=== PATIENT | male | born 1985 | race Caucasian/White ===

== ENCOUNTER 2020-02-09 12:29 | Emergency (ER) | payer SELFPAY ==
--- NOTE | 2020-02-09 12:36 | ED.SKABFB ---
HPI - Skin/Abscess/Foreign Bdy General Chief complaint: Skin/Abscess/Foreign Body Stated complaint: eczema Time Seen by Provider: 02/09/20 12:36 Source: patient and RN notes reviewed History of Present Illness HPI narrative: Patient is a 34-year-old male who presents the urgent care with complaints of eczema to the face, bilateral arms, ankle and buttocks. Patient states it started approximately 6 months ago and most recently has really started burning and itching at times . Patient states that he has been using his friend's prescription of Lexema foam as well as antibiotic lotion, Eucrisa, and oatmeal baths. Patient states that he does have an issue of eczema but it has never been widespread like it is now. Patient has not seen a job analysis manager and does not currently have a doctor. No other acute complaints. No acute distress noted. Patient aware of the plan of care. Some parts of this dictation were generated by voice recognition software and may contain typographical and/or grammatical inaccuracies. Related Data Allergies Allergy/AdvReac Type Severity Reaction Status Date / Time Penicillins Allergy Intermediate Unknown Verified 02/09/20 12:48 Review of Systems Review of Systems: Narrative: CONSTITUTIONAL: Denies fever, chills, or sweats. EYES: Denies visual changes, redness, or discharge. ENT: Denies rhinorrhea, congestion, sore throat, or otalgia. CARDIOVASCULAR: Denies chest pain, palpitations, or edema. RESPIRATORY: Denies cough or dyspnea. GASTROINTESTINAL: Denies abdominal pain, nausea, vomiting, or diarrhea. GENITOURINARY: Denies dysuria or hematuria. SKIN: Reports of burning/itchy eczema to the face, bilateral arms, ankle and buttocks MUSCULOSKELETAL: Denies back pain, joint pain, or myalgia. NEUROLOGIC: Denies headache, numbness, or weakness. All other systems reviewed are negative, except as documented in HPI. PMFSH Comments At the time of my signature, I reviewed and agree with the nursing past medical, surgical, social, and family history. There is no relevant family history pertinent to the patient complaint. Exam Narrative: Exam Narrative: GENERAL: This is a well-nourished, well-developed patient, in no apparent distress. HEAD: normocephalic, atraumatic. EYES: PERRL. Sclera clear/white. Vision is grossly intact. EARS: External ears normal NOSE: External nose normal with no obvious nasal discharge, nares without redness, no rhinorrhea. THROAT: Mucous membranes moist NECK: Neck supple SKIN: Plaque a dry erythemic eczema noted diffusely to the face, bilateral antecubital fossa's, right ankle, and left buttocks NEURO: awake, alert, and oriented to person, place and time. There were no obvious focal neurologic abnormalities. EXTREMITIES: No clubbing, cyanosis, or edema. Course Vital Signs Vital signs: Vital Signs Temperature 98.5 F 02/09/20 12:44 Pulse Rate 106 H 02/09/20 12:44 Respiratory Rate 02/09/20 12:44 Blood Pressure 159/91 H 02/09/20 12:44 Pulse Oximetry 100 02/09/20 12:44 Temperature 98.5 F 02/09/20 12:44 Pulse Rate 106 H 02/09/20 12:44 Respiratory Rate 02/09/20 12:44 Blood Pressure 159/91 H 02/09/20 12:44 Pulse Oximetry 100 02/09/20 12:44 Reviewed-patient is informed that they may have pre-hypertension or hypertension based on a blood pressure reading in the department. I recommend the patient call the primary care provider listed on their discharge instructions or a physician of their choice this week to arrange follow-up for further evaluation of possible pre-hypertension or hypertension. MDM - Skin/Abscess/Foreign Bdy MDM Narrative Medical decision making narrative: Advised the patient to use prescription steroid as directed. Make sure to eat and drink with the medication. Use prescription cream to the affected areas as directed, avoiding the armpits/directly near the eyes/groin. Use Aquaphor ointment intermittently to the affected areas and continue the oa
[2020-02-09 12:44] VITALS: BP 159/91; PULSE 106; RESP 20; TEMP 36.9; O2SAT 100
== END 2020-02-09 13:05 | disposition home or self-care (01) ==
PROVIDERS: Emergency Provider Nurse Practitioner Family
DX: L30.9 Dermatitis, unspecified (principal)
CPT/HCPCS: 99213; G0463

== ENCOUNTER 2023-09-23 21:26 | Emergency (ER) | payer SELFPAY ==
[2023-09-23 21:29] VITALS: BP 142/91; PULSE 100; RESP 16; TEMP 36.3; O2SAT 100
--- NOTE | 2023-09-23 22:17 | ED.WOUNDLAC ---
HPI - Wound/Laceration General Chief Complaint: Wound/Laceration Stated Complaint: R FOOT PUNCTURE WOUND Time Seen by Provider: 09/23/23 21:41 Source: patient Mode of arrival: ambulatory Limitations: no limitations History of Present Illness HPI narrative: This is a 38-year-old male that presents to the emergency department after puncture wound to his right heel this morning. He is not up-to-date on tetanus. Reports pain and swelling to the area. Denies fevers, erythema, or abnormal drainage. Related Data Allergies Allergy/AdvReac Type Severity Reaction Status Date / Time Penicillins Allergy Intermediate Unknown Verified 09/23/23 21:27 Review of Systems Review of Systems: CONSTITUTIONAL: Denies fever SKIN: Reports puncture wound All systems reviewed & are unremarkable except as noted in HPI and below PMFSH Past Medical History Medical History (Updated 09/23/23 @ 22:30 by Susannah Snider PA-C) ADHD Social History Social History (Updated 09/23/23 @ 22:30 by Susannah Snider PA-C) Substance use: never Exam Narrative: GENERAL: Well-appearing, well-nourished, and in no acute distress. HEAD: Normocephalic, atraumatic. EYES: EOMI. EXTREMITIES: Normal range of motion. No edema, erythema or abnormal drainage. Small puncture wound to the right heel SKIN: Warm, dry, no rash. NEURO: No focal deficits. Alert and oriented x3. PSYCH: Normal mood and affect Course Course Emergency Course: Patient agrees with plan of care Vital Signs Vital signs: Vital Signs Temperature 97.4 F L 09/23/23 21:29 Pulse Rate 100 09/23/23 21:29 Respiratory Rate 16 09/23/23 21:29 Blood Pressure 142/91 H 09/23/23 21:29 Pulse Oximetry 100 09/23/23 21:29 Oxygen Delivery Room Air 09/23/23 21:29 Temperature 97.4 F L 09/23/23 21:29 Pulse Rate 100 09/23/23 21:29 Respiratory Rate 16 09/23/23 21:29 Blood Pressure 142/91 H 09/23/23 21:29 Pulse Oximetry 100 09/23/23 21:29 Oxygen Delivery Room Air 09/23/23 21:29 MDM - Wound/Laceration MDM Narrative Medical decision making narrative: Patient presents to the ER for puncture wound to the right foot sustained just prior to arrival. Wound was irrigated. He will be started on prophylactic antibiotics. Refused x-ray of the foot. He was educated on further wound care. He was given warnings to return to the ER Differential Diagnosis Differential diagnosis: Likely other (puncture wound) Critical Care Time Critical Care Time Critical Care Time: No Discharge Plan Discharge Clinical Impression: Puncture wound Patient Disposition: Home, Self-Care Condition: Stable Instructions: Antibiotic Form, Puncture Wound (ED) Additional Instructions: Return to the emergency department if you experience fever, redness or swelling of your wound, abnormal drainage from your wound, or any other symptoms that are concerning to you. Apply antibiotic ointment daily. Do not soak the wound. Clean with mild soap and water daily. Take oral antibiotics as prescribed Follow-up with primary care doctor Prescriptions: New cephalexin 500 mg capsule 500 mg PO Q6H 5 Days Qty: 20 0RF ciprofloxacin HCl 500 mg tablet 500 mg PO Q12H 5 Days Qty: 10 0RF No Action prednisone 10 mg tablet See Rx Instructions .ROUTE .COMPLEX Qty: 30 0RF Rx Instructions: 4 tabs daily for days 1-3, 3 tabs daily for days 4-6, 2 tabs daily for days 7-9, 1 tab daily for days 10-12 triamcinolone acetonide 0.1 % ointment 1 applic topical BID Qty: 30 0RF Follow-up/Referrals: PHYSICIAN,EDITOR NEWSPAPER [Primary Care Provider] - Lon Valdivia MD [Physician] -
[2023-09-23] MEDS: CIPROFLOXACIN 500 MG TAB PO (22:34)
[2023-09-23] MEDS: CEPHALEXIN 500 MG CAPSULE PO (22:34)
[2023-09-23] MEDS: TETANUS,DIPHTHERIA,AC PERTUSSIS ADULT (0.5 ML) BOOSTRIX IM (22:34)
== END 2023-09-23 22:40 | disposition home or self-care (01) ==
PROVIDERS: Emergency Provider Physician Assistant
DX: S91.331A Puncture wound without foreign body, right foot, initial encounter (principal); Z23 Encounter for immunization; W45.0XXA Nail entering through skin, initial encounter
CPT/HCPCS: 90471; 90715; 99283; A9270

== ENCOUNTER 2024-08-08 23:23 | Emergency (ER) | payer SELFPAY ==
--- OUTSIDE RECORDS SUMMARY | 2024-08-08 23:25 | XMS_ITS | Data Portability ---
Author [facility] [address] [place] [address] Assessment No assessment recorded. Plan of Treatment Reminders Order Date Submit Date Provider Last Modified By Organization Details Last Modified Time Details Appointments None recorded. Lab None recorded. Referral ophthalmol ogist referral - Please call patient to schedule appt. Thank you. Reached out to patient no response. Return to submit. [facility]08/21/19 no response return to submit. [facility] 2018 020 emely Baig MD, [address] [place], [address], 0 09:50:05 Procedures None recorded. Surgeries None recorded. Imaging None recorded. Medication Orders tobramycin 0.3 % eye drops 2018 019 [facility] #[id number] [address] [place], [place], [id number], 9 15:14:04 Alanis Allergy 180 mg tablet 2018 019 [facility] #[id number] [address], [place], [id number], 9 15:13:52 Patient TargetsNo targets recorded. Patient InstructionsNo instructions recorded. Reason for Referral Barrel Brander Referral for [place] eye disease Please call patient to schedule appt. Thank you. Reached out to patient no response. Return to submit. [facility]08/21/19 no response return to submit. [facility] Referring Physician: Maame Whalen, Internal Medicine, Encounter Date: 01/01/2019 Problems Name Problem SNOMED Code Status Onset Date Resolution Date Notes Provider Name and Address Organization Details Recorded Time Red eye Active 01/02/20 19 JIMBO Torres [facility] 01/01/2019 14:49:58 Problem Notes None recorded. Medical Equipment None Reported. Allergies Allergen ID Allergen Name Allergen Category Reaction Reaction Severity Criticality Documentation Date Start Date Code Code System Note Provider Name and Address Organization Details Recorded Time 183549 latex environme nt,medica tion hives Not available Not available 01/01/2019 05419 91 RxNorm JIMBO Torres [facility] 9 14:50:23 851807 Product containin g penicilli n (product) medicatio n hives Not available Not available 01/01/2019 13115 8001 SNOMED JIMBO Torres [facility] 9 14:50:33 Medications Name Sig Start Date Stop Date Status Note LastModified by Organization Details LastModified Time tobramycin 0.3 % eye drops INSTILL 1 DROP INTO AFFECTED EYE(S) BY OPHTHALMIC ROUTE EVERY 4 HOURS 2018 active Not Available Not Available Not Avai lable Alanis Allergy 180 mg tablet Take 1 tablet every day by oral route as directed for 30 days. 2018 active Not Available Not Available Not Avai lable Vitals Date Recorded Body height Body mass index (BMI) Body weight Body temperature Oxygen saturation Oxygen saturation in Arterial blood by Pulse oximetry Heart rate Systolic blood pressure Diastolic blood pressure Systolic blood pressure Diastolic blood pressure Provider Name and Address Organization Details Last Updated DateTime 9 177.8 cm 19.7 kg/m2 58282.5 9 g 98.3 [degF] 98 % 98 % 97 /min 96 mm[Hg] 56 mm[Hg] 98 mm[Hg] 60 mm[Hg] JIMBO Torres [facility] 9 15:00:37 Social History Question Answer Notes LastModified by Organizat ion Details LastModified Time Tobacco Smoking Status Current Every Day Smoker cigarettes JIMBO Torres [facility] 01/01/2019 14:52:33 How Much Tobacco Do You Smoke? 1 PPD Information not available 01/01/2019 How Many Years Have You Smoked Tobacco? 20 Information not available 01/01/2019 Sex: Unknown Functional Status Question Answer Note LastModified by Organizat ion Details LastModified Time What is your level of alcohol consumption? Occasional Information not available 01/01/2019 Mental Status None recorded. Family History Relationship Description Onset Age of this Age Resolved Age Notes LastModified by Organization Details LastModified Time Father Attention deficit hyperactivit y disorder Not available 11/2018 14:51:18 Mother Suspected breast cancer Not available 01/01 14:51:40 Medical History No medical history recorded. Past Encounters Encounter ID Performer Location Encounter Start Date Encounter Closed Date Diagnosis/Indication Diagnosis SNOMED-CT Code Diagnosis ICD10 Code Diagnosis Note [id number] Maame Whalen MD [facility] (Adult Med) [address] [place] [phone] 01/01/2019 14:28:18 01/02/2019 09:43:11 [place] eye disease 370234637 H10.89 Discussed with patient, he agreed. Health Concerns Section Related Observation LastModified by Organization Detai ls LastModified Time None Recorded Concern Status LastModified by Organization Details LastModified Time None Recorded Advance Directives Directive None Recorded Payers None recorded. Notes Date Note Type Note Provider Name and Address Organization Details Recorded Time 01/01/2019 text/html New patient, came with , congested eyes , with discharge and itching, on OTC eye drop for about one month, smokes, drinks on weekend. on no other medication, allergic to latex and penicillins. History of skin psoriasis, on OTC cortisone cream. Maame Whalen MD Attn: Accounting,[address] [facility], [place], [address], [place] - [facility] 01/01/2019 16:56:09
[2024-08-08 23:38] VITALS: BP 133/83; PULSE 94; RESP 16; TEMP 36.6; O2SAT 100
--- NOTE | 2024-08-08 23:40 | ECG_ITS ---
Test Date: 2024-08-08 23:48:47 Measurements Intervals [place] Rate: 86 P: 84 VT: 141 QRS: 84 QRSD: 97 T: 73 QT: 359 QTc: 430 Interpretive Statements SINUS RHYTHM NORMAL ECG No previous ECG available for comparison Electronically Signed On 08-09-2024 08:09:00 CDT by Americo Hernandez M.D.
--- NOTE | 2024-08-09 00:06 | PC.NURSE ---
after pd released, pt got out of wheelchair and ambulated to exit with officers. i guess im walking home
== END 2024-08-09 00:42 | disposition left against medical advice (07) ==
LOC: ANHED 08-09 00:32
PROVIDERS: Emergency Provider Student in an Organized Health Care Education/Training Program
DX: F41.9 Anxiety disorder, unspecified (principal)
CPT/HCPCS: 93005; 99199